=== PATIENT | male | born 1975 | race African-American/Black ===

== ENCOUNTER 2017-01-30 11:13 | Emergency (ER) | payer BC, OTHER ==
[~2017-01-30] VITALS: Wt 113.6 kg
[~2017-01-30 11:13] MED LIST: COLC0.6T6 PO; HYDR-3498 PO; IBUP800T25 PO; PRED20TA PO
[2017-01-30] MEDS ORDERED: PRED20TA PO (11:45)
[2017-01-30] MEDS ORDERED: COLC0.6T6 PO (11:45)
[2017-01-30] MEDS ORDERED: IBUP-1542 PO (11:45)
--- NOTE | 2017-01-30 11:53 | ERD ---
ER Documentation Chief Complaint Date/Time DATE: 01/30/17 TIME: 11:48 Chief Complaint r. foot pain, hx gout HPI 41-year-old male complaining of right foot pain 1 day. Patient has history of gout, thinks that he has a gout flare. Pain is sharp and constant. States that he had taken allopurinol in the past, but have stopped some time ago. He usually drinks alcohol once a week, but in the last 2 weeks he has been drinking daily. He does not eat red meat, but eats seafood. Denies injuries. Denies fever or chills. ROS All systems reviewed and are negative except as per history of present illness. Medications Home Meds Active Scripts Ibuprofen* (Motrin*) 600 Mg Tab, 600 MG PO Q6H Y for PAIN AND OR ELEVATED TEMP, #30 TAB Prov:TRINI SOLIZ. INFORMATION SYSTEMS PROJECT MANAGER 01/30/17 Prednisone* (Prednisone*) 20 Mg Tab, 60 MG PO DAILY for 3 Days, TAB Prov:TRINI SOLIZ NP 01/30/17 Colchicine* (Colcrys*) 0.6 Mg Tablet, 0.6 MG PO as directed, #3 TAB Take 2 tabs immediately, then 1 tab 1 hour later. Prov:TRINI SOLIZ INFORMATION SYSTEMS PROJECT MANAGER 01/30/17 Hydrocodone Bit-Acetaminophen* ([place]*) 5-325 Mg Tab, 1 TAB PO Q6 Y for PAIN, # 7 TAB Prov:LISANDRO RAYMOND PA-C 11/11/15 Prednisone* (Prednisone*) 20 Mg Tab, 40 MG PO DAILY for 4 Days, TAB Prov:LISANDRO RAYMOND PA-C 11/11/15 Ibuprofen* (Motrin*) 800 Mg Tab, 800 MG PO Q6, #30 TAB Prov:LISANDRO RAYMOND PA-C 11/11/15 Colchicine* (Colcrys*) 0.6 Mg Tablet, 0.6 MG PO in 1 hour, #1 TAB Prov:LISANDRO RAYMOND PA-C 11/11/15 Allergies Allergies: Coded Allergies: No Known Allergy (Unverified , 11/11/15) PMhx/Soc History of Surgery: No Anesthesia Reaction: No Hx Neurological Disorder: Yes (headache) Hx Respiratory Disorders: No Hx Cardiac Disorders: No Hx Psychiatric Problems: No Hx Miscellaneous Medical Probl: Yes (Gout) Hx Alcohol Use: No Hx Substance Use: No Hx Tobacco Use: No Physical Exam Vitals Vital Signs Date Time Temp Pulse Resp B/P Pulse Ox O2 Delivery O2 Flow Rate FiO2 01/30/17 11:22 98.9 97 20 137/80 100 Physical Exam General impression: Well-developed, well-nourished. Alert, oriented, in no acute distress Head: Normocephalic, atraumatic. Neck: Supple, nontender. No lymphadenopathy. No nuchal rigidity. Respiration: Normal respiratory effort. Lungs clear to auscultate bilaterally. No wheezes, rales or rhonchi. Cardiovascular: Regular rate and rhythm. No murmurs or extra heart sounds. Extremities: Erythema, swelling, and tenderness at the MTP joint of the right big toe. Normal range of motion, neurovascularly intact. Neuro: Mental status normal, speech normal. MEDICAL MANAGEMENT TRAINER grossly intact. Skin: Normal turgor. No rash or lesions. Psych: Normal mood and affect. Procedures/MDM Well-appearing 41-year-old male with history of gout presented to ED with acute gout flare of the right big toe. Low suspicion for fractures, dislocations, or cellulitis. Patient appears well, stable for discharge and outpatient management. Medical decision making shared with patient and family. Education provided to patient and family. Patient and family expressed understanding of the plan. Medications on discharge: Colchicine, prednisone, ibuprofen. Follow-up: Primary care provider in 2-3 days or return to ED if worse. Departure Diagnosis: Primary Impression: Gout flare Gout site: foot Gout etiology: unspecified cause Laterality: right Qualified Code: M10.9 - Acute gout of right foot, unspecified cause Condition: Good Patient Instructions: Treating Gout Attacks, Eating to Prevent Gout Referrals: [facility] YOU HAVE RECEIVED A MEDICAL SCREENING EXAM AND THE RESULTS INDICATE THAT YOU DO NOT HAVE A CONDITION THAT REQUIRES URGENT TREATMENT IN THE EMERGENCY DEPARTMENT. FURTHER EVALUATION AND TREATMENT OF YOUR CONDITION CAN WAIT UNTIL YOU ARE SEEN IN YOUR DOCTORS OFFICE WITHIN THE NEXT 1-2 DAYS. IT IS YOUR RESPONSIBILITY TO MAKE AN APPOINTMENT FOR FOLOW-UP CARE. IF YOU HAVE A PRIMARY DOCTOR --you should call your primary doctor and schedule an appointment IF YOU DO NOT HAVE A PRIMARY DOCTOR YOU CAN CALL OUR PHYSICIAN REFERRAL HOTLINE AT IF YOU CAN NOT AFFORD TO SEE A PHYSICIAN YOU CAN CHOSE FROM THE FOLLOWING [facility] [address] [facility] [address] [facility] [facility] [address] [facility] [address] [facility] [address] [facility] [facility] [address] Additional Instructions: Call your primary care doctor TOMORROW for an appointment during the next 1 WEEK.Tell the litigation secretary that you were referred from this facility.See the doctor sooner or return here if your condition worsens before your appointment time. TRINI SOLIZ NP Jan 30, 2017 11:53
[2017-01-30] MEDS ORDERED: IBUPROFEN 800 MG TAB PO ONE (13:00)
== END 2017-01-30 12:48 | disposition home or self-care (01) ==
LOC: FTE 11:13
DX: M10.9 Gout, unspecified (principal)
CPT/HCPCS: 99284